=== PATIENT | male | born 1935 | race Caucasian/White ===

== ENCOUNTER 2023-05-21 23:52 | Inpatient (IN) | payer MEDICARE, OTHER ==
[~2023-05-21] VITALS: Ht 182.9 cm; Wt 90.7 kg
[2023-05-22] MEDS ORDERED: ERGO500040 PO (00:07)
[2023-05-22] MEDS ORDERED: MIRA25TA PO (00:07)
[2023-05-22] MEDS ORDERED: TRAZ-182 PO ×2 (00:07→14:09)
[2023-05-22] MEDS ORDERED: TAMS-3 PO (00:07)
[2023-05-22] MEDS ORDERED: FURO40TA5 PO (00:07)
[2023-05-22] MEDS ORDERED: ATOR40TA PO (00:07)
[2023-05-22] MEDS ORDERED: ESCI-9 PO (00:07)
[2023-05-22] MEDS ORDERED: CALC-1276 PO (00:07)
[2023-05-22] MEDS ORDERED: ASPI81TA31 PO (00:07)
[2023-05-22] MEDS ORDERED: LEVO25TA9 PO (00:07)
[2023-05-22] MEDS ORDERED: POTA-88 PO (00:07)
--- NOTE | 2023-05-22 00:10 | NUR ---
Pt is noted responsive but very Altered as he is brought in by EMS from a SNF confused, Lashing out at staff and Agressive with a history off UTI . Pt speaks only Bhargav. Pt care continue as awaits MD ordered.
[2023-05-22] MEDS ORDERED: HALOPERIDOL LACTATE 5 MG/1 ML VIAL IM ONE ×2 (00:15→01:45)
[2023-05-22] MEDS ORDERED: LIDOCAINE 2% (GLYDO= UROJET) 10 ML JELLY MM ONE (00:15)
[2023-05-22] MEDS ORDERED: LORAZEPAM 2 MG/1 ML VIAL IM ONE ×2 (00:15→04:15)
[2023-05-22 00:29] LABS: HEMATOCRIT 37.8 % (36.7-47.1); MEAN CORPUSCULAR HEMOGLOBIN 32.2 uug (23.8-33.4); PLATELET COUNT (AUTO) 173 K/uL (152-348)
[2023-05-22] MEDS ORDERED: HALOPERIDOL LACTATE 5 MG/1 ML VIAL ONE ×2 (00:39→01:49)
[2023-05-22] MEDS ORDERED: LORAZEPAM 2 MG/1 ML VIAL ONE ×2 (00:39→04:11)
[2023-05-22 00:47] LABS: ALANINE AMINOTRANSFERASE 24 U/L (16-63); ALKALINE PHOSPHATASE 58 U/L (50-136); ASPARTATE AMINOTRANSFERASE 13 U/L (15-37); BILIRUBIN,DIRECT 0.2 mg/dL (0.0-0.2); BILIRUBIN,TOTAL 0.5 mg/dL (0.2-1.0); CARBON DIOXIDE 29 mmol/L (21-32); CHLORIDE 106 mmol/L (98-107); CREATININE 1.3 mg/dL (0.6-1.3); TOTAL PROTEIN, SERUM 6.6 g/dL (6.4-8.2); UREA NITROGEN, BLOOD 26 mg/dL (7-18)
--- NOTE | 2023-05-22 00:47 | NUR ---
Pt care continue as he is becoming more aggressive with Ativan 0.5mg IM and Haldol 5mg IM given as ordered.
[2023-05-22 00:53] LABS: ACETAMINOPHEN < 2.0 ug/mL (10-30)
[2023-05-22 00:59] LABS: THYROID STIMULATING HORMONE 3.292 mIU/mL (0.358-3.740)
--- NOTE | 2023-05-22 01:36 | NUR ---
Pt care continue as urine sent to LAB.
[2023-05-22 01:52] LABS: *BILIRUBIN,URIN NEGATIVE (NEGATIVE); *CLARITY,URINE CLEAR (CLEAR); *COLOR,URINE YELLOW (YELLOW); *KETONES,URINE TRACE (NEGATIVE); *UROBILINOGEN,URINE 0.2 E.U./dl (NORMAL); LEUKOCYTE ESTERASE ,URINE NEGATIVE (NEGATIVE); NITRITE, URINE NEGATIVE (NEGATIVE); PH,URINE 5.5 (5.0-8.0); UGLUCOSE NEGATIVE (NEGATIVE)
--- NOTE | 2023-05-22 01:54 | NUR ---
Pt care continue with restraints in place as Haldol 10mg given again as Pt is increasing aggressive and confused .
[2023-05-22 01:57] LABS: *BLOOD, URINE NEGATIVE (NEGATIVE); BACTERIA,URINE NONE SEEN /HPF (NONE SEEN); RBC,URINE 0-3 /HPF (0-3); SQUAMOUS EPITHELIAL CELL,UR NONE SEEN /HPF (NONE SEEN); WBC,URINE 0-3 /HPF (0-3)
--- NOTE | 2023-05-22 03:01 | NUR ---
Pt care continue as he is off to CT.
--- NOTE | 2023-05-22 03:22 | NUR ---
Pt care continue as he is back from CT.
--- NOTE | 2023-05-22 04:17 | NUR ---
Ativen 1mg IM given as ordered as Pt remain on restraint. Pt care continue as he is trying to pull off medical lines.
--- NOTE | 2023-05-22 06:14 | NUR ---
Pt care continue as he remain on Hard Restraints as he is been monitor closely.
--- NOTE | 2023-05-22 07:22 | NUR ---
Pt care continue as report is given to the AM receiving nurse.
--- NOTE | 2023-05-22 07:27 | NUR ---
Pt is medically cleared by Dr ayala. Awaiting to call PET at [phone].
--- NOTE | 2023-05-22 08:00 | NUR ---
Pt is taken off restraines, calm and cooperative at this time. Safety measures in place, continue close monitoring.
--- NOTE | 2023-05-22 08:30 | NUR ---
Skin care given , BM x1, reposition and all needs met. Awaiting PET eval.
--- NOTE | 2023-05-22 10:28 | NUR ---
Incontinance care given. Pt still attempts to get out of bed occassionaly. Continue close monitoring.
--- NOTE | 2023-05-22 10:50 | NUR ---
Pt was placed on 5150 hold for GD, by NAHOMY Sanchez.
--- NOTE | 2023-05-22 11:15 | NUR ---
GPS: Nursing Notes: Admitting Notes: Patient is awake and responding to his name, poor anger management, confused, disoriented, impaired judgment, medicated with Haldol and Ativan IM in the ER for severe agitation, placed on 5150 GD due to disorientation and when asked for his name, he reports "I am lazy.." Patient required restraints and IM Haldol in ER for severe agitation. On face to face assessment, patient continue to be confused, disorganized, disoriented, resistant with nursing care, A/Ox1, disrobing on his bed, belligerent toward staff, unable to be redirected, unable to formulate a viable plan for self care. Dr. Sage and Dr. Rosen informed of admission by charge nurse. Staff gave admitting package with Patient's Rights Handbook to the patient. continue to monitor for safety, continue with treatment plan.
[2023-05-22 11:20] VITALS: BP 126/68; TEMP 98; O2SAT 95
[2023-05-22] MEDS ORDERED: MAG HYDROX/AL HYDROX/SIMETH 30 ML LIQUID UDC PO PRN (11:30)
[2023-05-22] MEDS ORDERED: MAGNESIUM HYDROXIDE 30 ML LIQUID UDC PO PRN (11:30)
--- NOTE | 2023-05-22 11:33 | NUR ---
Transfer pt to bed 140B in MHU.
[2023-05-22] MEDS ORDERED: ESCI10TA PO (14:09)
[2023-05-22 16:00] VITALS: BP 137/71; TEMP 98.3; O2SAT 96
--- NOTE | 2023-05-22 20:50 | NUR ---
Patient was noted vomiting x1. emesis looked black/brown in color and semiliquid. patient's V/S are WNL. Labs are stable. H&H are WNL, patient is in no distress. Dr Burden was notified of patient's condition and new order obtained to administer Zofran 4mg PO PRN for nausea or vomiting. Will continue to monitor closely.
[2023-05-22 21:01] VITALS: BP 138/67; TEMP 98; O2SAT 96
[2023-05-22] MEDS: ATORVASTATIN 40 MG TABLET PO SCH (21:13)
[2023-05-22] MEDS: TAMSULOSIN HCL 0.4 MG CAP.SR.24H PO SCH (21:13)
[2023-05-22] MEDS: TEMAZEPAM 7.5 MG CAPSULE PO PRN (21:22)
[2023-05-22] MEDS: LORAZEPAM 1 MG TABLET PO PRN (22:39)
--- NOTE | 2023-05-22 23:25 | NUR ---
GPS: Pt.is anxious and restless in bed and keeps attempting to get out of bed. Confused,disoriented. Poor insight to present situation. Meds.for insomnia given earlier and ineffective so far.l Re-directed frequently. No facial grimacing of pain observed. No further vomitting episodes noted. Will continue to monitor.
[2023-05-23] MEDS: PANTOPRAZOLE SODIUM 40 MG TABLET.DR PO SCH (06:05)
[2023-05-23] MEDS: LEVOTHYROXINE SODIUM 25 MCG TABLET PO SCH (06:05)
--- NOTE | 2023-05-23 06:34 | NUR ---
GPS: Pt.remains asleep at this time in bed. No further vomitting episodes noted. Re-directed prn. Bed alarm on for safety. No increased agitation noted.
[2023-05-23 07:40] VITALS: BP 159/80; TEMP 98.2; O2SAT 94
[2023-05-23 08:15] LABS: BILIRUBIN,TOTAL 1.2 mg/dL (0.2-1.0); CREATININE 1.2 mg/dL (0.6-1.3); POTASSIUM 4.4 mmol/L (3.5-5.1); TOTAL PROTEIN, SERUM 6.7 g/dL (6.4-8.2)
[2023-05-23] MEDS: LORAZEPAM 1 MG TABLET PO PRN ×2 (08:21→16:18)
[2023-05-23] MEDS: ONDANSETRON ODT 4 MG TAB.RAPDIS SL PRN (08:22)
[2023-05-23] MEDS: POTASSIUM CHLORIDE 20 MEQ TAB.PRT.SR PO SCH (08:22)
[2023-05-23] MEDS: FUROSEMIDE 40 MG TABLET PO SCH (08:22)
[2023-05-23] MEDS: CALCIUM CARB/VITAMIN D 500MG-200UNITS TABLET PO SCH ×2 (08:22→16:17)
[2023-05-23] MEDS: ASPIRIN 81 MG TAB.CHEW PO SCH (08:23)
[2023-05-23] MEDS ORDERED: Medication Not On Formulary EA (Potassium Chloride 1 TAB) PO SCH (09:00)
[2023-05-23] MEDS ORDERED: ESCITALOPRAM OXALATE 10 MG TABLET PO SCH (10:00)
[2023-05-23] MEDS: ESCITALOPRAM OXALATE 10 MG TABLET PO SCH (12:07)
--- NOTE | 2023-05-23 13:39 | NUR ---
GPS: Nursing Notes: Thought Disorder: Patient is awake and responding to his name, no interactions with peers, compliant with his medications, low energy level, confused, disoriented, impaired judgment, needs assistance with ambulation, ambulatory with FWW and physical therapist, up in the lakshmi chair, resistant with nursing care at times, poor anger management at times, disorganized, unable to formulate a viable plan for self care, on fall precautions, continue to monitor for safety, continue with treatment plan.
[2023-05-23 15:46] VITALS: BP 120/61; TEMP 97.8; O2SAT 96
[2023-05-23 19:57] VITALS: BP 154/64; TEMP 98.1; O2SAT 97
[2023-05-23] MEDS: TAMSULOSIN HCL 0.4 MG CAP.SR.24H PO SCH (20:16)
[2023-05-23] MEDS: ATORVASTATIN 40 MG TABLET PO SCH (20:16)
[2023-05-24] MEDS: TEMAZEPAM 7.5 MG CAPSULE PO PRN ×2 (00:12→21:47)
[2023-05-24] MEDS: LORAZEPAM 1 MG TABLET PO PRN ×2 (01:16→19:33)
[2023-05-24] MEDS: PANTOPRAZOLE SODIUM 40 MG TABLET.DR PO SCH (06:35)
[2023-05-24] MEDS: LEVOTHYROXINE SODIUM 25 MCG TABLET PO SCH (06:35)
[2023-05-24 08:09] VITALS: BP 126/64; TEMP 98.4; O2SAT 98
[2023-05-24] MEDS: POTASSIUM CHLORIDE 20 MEQ TAB.PRT.SR PO SCH (08:53)
[2023-05-24] MEDS: FUROSEMIDE 40 MG TABLET PO SCH (08:53)
[2023-05-24] MEDS: CALCIUM CARB/VITAMIN D 500MG-200UNITS TABLET PO SCH ×2 (08:53→17:35)
[2023-05-24] MEDS: ASPIRIN 81 MG TAB.CHEW PO SCH (08:55)
[2023-05-24] MEDS: ESCITALOPRAM OXALATE 10 MG TABLET PO SCH (08:55)
--- NOTE | 2023-05-24 11:51 | NUR ---
MARJORIE Initial Discharge Note: Pt currently resides at [facility] located at [address] [place] [id number] . It is unsure at this time if pt will be returning to [facility]. MARJORIE will work with pt, his son/DPMOSHE, Lamar, and to ensure a safe and proper discharge plan.
[2023-05-24 15:50] VITALS: BP 121/74; TEMP 98.2; O2SAT 98
--- NOTE | 2023-05-24 16:42 | NUR ---
Pt is confused, disoriented, disorganized, impaired judgment. Pt can be resistant with nursing care at times. Pt is unable to care for him self and needs maximal assistance with ADLs. Pt is compliant with medications. Pt is unable to formulate a viable plan for self care. Reassurance and emotional support provided. Safety measures in place. Continue to monitor for safety, continue with treatment plan.
[2023-05-24] MEDS: ATORVASTATIN 40 MG TABLET PO SCH (20:07)
[2023-05-24] MEDS: TAMSULOSIN HCL 0.4 MG CAP.SR.24H PO SCH (20:07)
[2023-05-24 20:10] VITALS: BP 132/63; TEMP 98.1; O2SAT 96
[2023-05-25] MEDS: LORAZEPAM 1 MG TABLET PO PRN ×3 (02:51→20:30)
[2023-05-25] MEDS: PANTOPRAZOLE SODIUM 40 MG TABLET.DR PO SCH (06:01)
[2023-05-25] MEDS: LEVOTHYROXINE SODIUM 25 MCG TABLET PO SCH (06:01)
--- NOTE | 2023-05-25 06:32 | NUR ---
GPS: Remains confused,disoriented. Has poor insight and judgment to present situation. Med.compliant. Allows care from staff. No increased agitation noted. Fall precautions observed. Re-directed prn.
[2023-05-25 08:02] VITALS: BP 138/67; TEMP 98; O2SAT 98
[2023-05-25] MEDS: CALCIUM CARB/VITAMIN D 500MG-200UNITS TABLET PO SCH ×2 (08:56→17:12)
[2023-05-25] MEDS: FUROSEMIDE 40 MG TABLET PO SCH (08:56)
[2023-05-25] MEDS: ASPIRIN 81 MG TAB.CHEW PO SCH (08:56)
[2023-05-25] MEDS: ESCITALOPRAM OXALATE 10 MG TABLET PO SCH (08:56)
[2023-05-25] MEDS: POTASSIUM CHLORIDE 20 MEQ TAB.PRT.SR PO SCH (08:56)
--- NOTE | 2023-05-25 14:24 | NUR ---
Nursing- Stayed in the activity room this am , remains in his lakshmi-chair . Routine am meds, was administered crushed with pudding . Gets anxious , confused ,able to feed self ind .after set up .
[2023-05-25 15:16] VITALS: BP 136/63; TEMP 98; O2SAT 98
--- NOTE | 2023-05-25 15:26 | NUR ---
Patient had court hearing today, circuit court judge Bernie Manrique gave 14 Day hold probable cause to GD.
--- NOTE | 2023-05-25 16:23 | NUR ---
Gps/Nursing -Noted bladder incontinence toileted , good hygiene provided . noted scanty bleeding when being cleansed during his toileting , good skin care provided . Resistive during his care .
[2023-05-25 19:37] VITALS: BP 139/85; TEMP 98; O2SAT 98
[2023-05-25] MEDS: TAMSULOSIN HCL 0.4 MG CAP.SR.24H PO SCH (20:30)
[2023-05-25] MEDS: ATORVASTATIN 40 MG TABLET PO SCH (20:30)
[2023-05-26] MEDS: PANTOPRAZOLE SODIUM 40 MG TABLET.DR PO SCH (07:00)
[2023-05-26] MEDS: LEVOTHYROXINE SODIUM 25 MCG TABLET PO SCH (07:00)
[2023-05-26 08:04] VITALS: BP 123/66; TEMP 97.6; O2SAT 98
[2023-05-26] MEDS: FUROSEMIDE 40 MG TABLET PO SCH (08:29)
[2023-05-26] MEDS: CALCIUM CARB/VITAMIN D 500MG-200UNITS TABLET PO SCH ×2 (08:29→16:57)
[2023-05-26] MEDS: POTASSIUM CHLORIDE 20 MEQ TAB.PRT.SR PO SCH (08:30)
[2023-05-26] MEDS: ESCITALOPRAM OXALATE 10 MG TABLET PO SCH (08:30)
[2023-05-26] MEDS: ASPIRIN 81 MG TAB.CHEW PO SCH (08:30)
--- NOTE | 2023-05-26 14:43 | NUR ---
Gps/Nursing- While lead technical writer was talking to another staff , patient grabbed ID tag of the staff , and will not give it back. Security Guards was called , came to assist staff retrieved ID tag, patient was taken to the bathroom, diaper was changed 4 staff assisting , was able to retrieved iID tag back, patient hide tad inside his pajama .
[2023-05-26 16:25] VITALS: BP 130/65; TEMP 97.9; O2SAT 97
[2023-05-26 19:49] VITALS: BP 140/67; TEMP 98.1; O2SAT 97
[2023-05-26] MEDS: LORAZEPAM 1 MG TABLET PO PRN (19:51)
[2023-05-26] MEDS: ATORVASTATIN 40 MG TABLET PO SCH (19:51)
[2023-05-26] MEDS: TAMSULOSIN HCL 0.4 MG CAP.SR.24H PO SCH (19:51)
[2023-05-27] MEDS: TEMAZEPAM 7.5 MG CAPSULE PO PRN ×2 (02:46→23:13)
--- NOTE | 2023-05-27 02:55 | NUR ---
Although confused, disoriented, and unable to provided a plan of self care, pt is overall compliant with care. Complies with direction given by staff nurses. Although crushed, pt takes medications without any refusal. He is non ambulatory, yet transferrable x1 or x2 assist. Fall Risk. Safety measures in place. Will continue to monitor.
[2023-05-27] MEDS: PANTOPRAZOLE SODIUM 40 MG TABLET.DR PO SCH (06:36)
[2023-05-27] MEDS: LEVOTHYROXINE SODIUM 25 MCG TABLET PO SCH (06:36)
[2023-05-27 07:49] VITALS: BP 104/71; TEMP 98.1; O2SAT 97
[2023-05-27] MEDS: POTASSIUM CHLORIDE 20 MEQ TAB.PRT.SR PO SCH (08:42)
[2023-05-27] MEDS: FUROSEMIDE 40 MG TABLET PO SCH (08:42)
[2023-05-27] MEDS: ASPIRIN 81 MG TAB.CHEW PO SCH (08:42)
[2023-05-27] MEDS: CALCIUM CARB/VITAMIN D 500MG-200UNITS TABLET PO SCH ×2 (08:44→16:45)
[2023-05-27] MEDS: ESCITALOPRAM OXALATE 10 MG TABLET PO SCH (08:51)
[2023-05-27] MEDS: LORAZEPAM 1 MG TABLET PO PRN ×2 (12:25→21:23)
[2023-05-27] MEDS: ENSURE ENLIVE (VAN) 240 ML LIQUID PO SCH (13:00)
--- NOTE | 2023-05-27 15:56 | NUR ---
Received Patient is awake and responding to his name, no interactions with peers, compliant with his medications.patient is confused, disoriented, impaired judgment, needs assistance with ambulation, ambulatory with FWW and physical therapist, up in the lakshmi chair, resistant with nursing care at times, poor anger management at times, disorganized, unable to formulate a viable plan for self care, on fall precautions, continue to monitor for safety, continue with treatment plan.
[2023-05-27 16:41] VITALS: BP 139/70; TEMP 98; O2SAT 98
[2023-05-27 20:00] VITALS: BP 142/66; TEMP 98.6; O2SAT 97
[2023-05-27] MEDS: TAMSULOSIN HCL 0.4 MG CAP.SR.24H PO SCH (20:29)
[2023-05-27] MEDS: ATORVASTATIN 40 MG TABLET PO SCH (20:29)
--- NOTE | 2023-05-27 20:30 | NUR ---
Received patient in the hallway sitting in a lory chair near the nursing station for safety. He is noted A/O 1. he is calm and cooperative. his mood is bright, affect is labile. his V/S are stable. He is reassured for his safety. safety and fall precautions are in place. he was given PO fluids and snacks, will continue to monitor.
--- NOTE | 2023-05-27 21:30 | NUR ---
Patient noted hyperverbal, and restless. Ativan 1mg PO PRN was given. will continue to monitor,
[2023-05-28] MEDS: LEVOTHYROXINE SODIUM 25 MCG TABLET PO SCH (06:44)
[2023-05-28] MEDS: PANTOPRAZOLE SODIUM 40 MG TABLET.DR PO SCH (06:44)
[2023-05-28 08:37] VITALS: BP 144/57; TEMP 98; O2SAT 96
[2023-05-28] MEDS: POTASSIUM CHLORIDE 20 MEQ TAB.PRT.SR PO SCH (08:45)
[2023-05-28] MEDS: CALCIUM CARB/VITAMIN D 500MG-200UNITS TABLET PO SCH ×2 (08:45→16:50)
[2023-05-28] MEDS: FUROSEMIDE 40 MG TABLET PO SCH (08:45)
[2023-05-28] MEDS: ASPIRIN 81 MG TAB.CHEW PO SCH (08:45)
[2023-05-28] MEDS: ESCITALOPRAM OXALATE 10 MG TABLET PO SCH (08:46)
[2023-05-28] MEDS: ERGOCALCIFEROL 50,000 UNIT CAPSULE PO SCH (08:47)
[2023-05-28] MEDS: ENSURE ENLIVE (VAN) 240 ML LIQUID PO SCH (08:47)
[2023-05-28 16:29] VITALS: BP 130/59; TEMP 98.3; O2SAT 98
[2023-05-28] MEDS: ATORVASTATIN 40 MG TABLET PO SCH (20:13)
[2023-05-28] MEDS: TAMSULOSIN HCL 0.4 MG CAP.SR.24H PO SCH (20:13)
[2023-05-28 20:14] VITALS: BP 136/64; TEMP 98; O2SAT 98
[2023-05-28] MEDS: LORAZEPAM 1 MG TABLET PO PRN (21:02)
--- NOTE | 2023-05-29 04:09 | NUR ---
Received patient in the hallway sitting in a lory chair near the nursing station for safety. He is noted A/O 1. he is a poor historian. he is hyperverbal labile and unpredictable, Ativan 1mg PO prn was given for agitation. Pt is able to cooperative with his medication regiment diet and care. his V/S are stable. He is reassured for his safety. safety and fall precautions are in place. he was given PO fluids and snacks, will continue to monitor.
[2023-05-29] MEDS: PANTOPRAZOLE SODIUM 40 MG TABLET.DR PO SCH (06:43)
[2023-05-29] MEDS: LEVOTHYROXINE SODIUM 25 MCG TABLET PO SCH (06:43)
[2023-05-29 07:58] VITALS: BP 131/67; TEMP 98.2; O2SAT 99
[2023-05-29] MEDS: LORAZEPAM 1 MG TABLET PO PRN ×2 (08:00→20:27)
[2023-05-29] MEDS: FUROSEMIDE 40 MG TABLET PO SCH (08:09)
[2023-05-29] MEDS: ESCITALOPRAM OXALATE 10 MG TABLET PO SCH ×2 (08:09→12:40)
[2023-05-29] MEDS: POTASSIUM CHLORIDE 20 MEQ TAB.PRT.SR PO SCH (08:09)
[2023-05-29] MEDS: ASPIRIN 81 MG TAB.CHEW PO SCH (08:09)
[2023-05-29] MEDS: CALCIUM CARB/VITAMIN D 500MG-200UNITS TABLET PO SCH ×2 (08:09→16:59)
[2023-05-29] MEDS: ENSURE ENLIVE (VAN) 240 ML LIQUID PO SCH (08:09)
[2023-05-29 16:11] VITALS: BP 146/95; TEMP 98.4; O2SAT 97
[2023-05-29] MEDS: TAMSULOSIN HCL 0.4 MG CAP.SR.24H PO SCH (20:27)
[2023-05-29] MEDS: ATORVASTATIN 40 MG TABLET PO SCH (20:28)
[2023-05-29 20:58] VITALS: BP 152/67; TEMP 98.2; O2SAT 98
[2023-05-29] MEDS: TEMAZEPAM 7.5 MG CAPSULE PO PRN (23:43)
--- NOTE | 2023-05-29 23:44 | NUR ---
Gave Temazepam po prn for restlessness. Safe environment provided. Will continue to monitor. Addendum: 05/29/23 at 2347 by ROGER OZUNA LVN Gave Temazepam d/t Ativan being ineffective and patient was having trouble falling asleep.
[2023-05-30] MEDS: PANTOPRAZOLE SODIUM 40 MG TABLET.DR PO SCH (07:14)
[2023-05-30] MEDS: LEVOTHYROXINE SODIUM 25 MCG TABLET PO SCH (07:14)
[2023-05-30 07:48] VITALS: BP 141/58; TEMP 97.5; O2SAT 96
[2023-05-30] MEDS: CALCIUM CARB/VITAMIN D 500MG-200UNITS TABLET PO SCH ×2 (08:54→16:26)
[2023-05-30] MEDS: ASPIRIN 81 MG TAB.CHEW PO SCH (08:54)
[2023-05-30] MEDS: POTASSIUM CHLORIDE 20 MEQ TAB.PRT.SR PO SCH (08:54)
[2023-05-30] MEDS: FUROSEMIDE 40 MG TABLET PO SCH (08:54)
[2023-05-30] MEDS: ENSURE ENLIVE (VAN) 240 ML LIQUID PO SCH (08:54)
[2023-05-30] MEDS: ESCITALOPRAM OXALATE 10 MG TABLET PO SCH ×2 (08:54→12:20)
--- NOTE | 2023-05-30 11:41 | NUR ---
GPS: Nursing Notes: Thought Disorder: Patient is awake and responding to his name, disoriented, confused, disorganized, impaired judgment, poor insight, regressing to his lone [place] language - Farsi, unable to formulate a viable plan for self care, redirected and reoriented during shift, episodes of irritability, but redirected, sundown behavior at times, continue to monitor for safety, continue with treatment plan.
[2023-05-30] MEDS: LORAZEPAM 1 MG TABLET PO PRN ×3 (12:45→20:53)
[2023-05-30 16:07] VITALS: BP 131/61; TEMP 97.7; O2SAT 98
[2023-05-30 20:06] VITALS: BP 151/63; TEMP 97.9; O2SAT 100
[2023-05-30] MEDS: ATORVASTATIN 40 MG TABLET PO SCH (20:47)
[2023-05-30] MEDS: TAMSULOSIN HCL 0.4 MG CAP.SR.24H PO SCH (20:47)
[2023-05-30] MEDS: TEMAZEPAM 7.5 MG CAPSULE PO PRN (22:16)
[2023-05-31] MEDS: LEVOTHYROXINE SODIUM 25 MCG TABLET PO SCH (06:28)
[2023-05-31] MEDS: PANTOPRAZOLE SODIUM 40 MG TABLET.DR PO SCH (06:28)
[2023-05-31 07:54] VITALS: BP 148/59; TEMP 98.2; O2SAT 98
[2023-05-31 08:58] LABS: CARBON DIOXIDE 29 mmol/L (21-32); CHLORIDE 104 mmol/L (98-107); CREATININE 1.1 mg/dL (0.6-1.3); POTASSIUM 4.7 mmol/L (3.5-5.1); UREA NITROGEN, BLOOD 25 mg/dL (7-18)
[2023-05-31] MEDS: ESCITALOPRAM OXALATE 10 MG TABLET PO SCH ×2 (09:20→12:49)
[2023-05-31] MEDS: ASPIRIN 81 MG TAB.CHEW PO SCH (09:20)
[2023-05-31] MEDS: POTASSIUM CHLORIDE 20 MEQ TAB.PRT.SR PO SCH (09:20)
[2023-05-31] MEDS: FUROSEMIDE 40 MG TABLET PO SCH (09:20)
[2023-05-31] MEDS: CALCIUM CARB/VITAMIN D 500MG-200UNITS TABLET PO SCH ×2 (09:20→17:11)
[2023-05-31] MEDS: ENSURE ENLIVE (VAN) 240 ML LIQUID PO SCH (09:21)
[2023-05-31 15:09] VITALS: BP 115/82; TEMP 98; O2SAT 98
--- NOTE | 2023-05-31 17:49 | NUR ---
Patient is confused, forgetful, disorganized, disoriented, compliant with medications, cooperative with nursing care. Patient is A/O X 1 to person. Reassurance given. Fall and safety precautions implemented.
[2023-05-31 20:09] VITALS: BP 145/56; TEMP 98.1; O2SAT 98
[2023-05-31] MEDS: ATORVASTATIN 40 MG TABLET PO SCH (20:54)
[2023-05-31] MEDS: TAMSULOSIN HCL 0.4 MG CAP.SR.24H PO SCH (20:54)
[2023-05-31] MEDS: TEMAZEPAM 7.5 MG CAPSULE PO PRN (20:55)
[2023-06-01] MEDS: PANTOPRAZOLE SODIUM 40 MG TABLET.DR PO SCH (06:30)
[2023-06-01] MEDS: LEVOTHYROXINE SODIUM 25 MCG TABLET PO SCH (06:31)
[2023-06-01 08:00] VITALS: BP 152/84; TEMP 98; O2SAT 99
[2023-06-01] MEDS: ESCITALOPRAM OXALATE 10 MG TABLET PO SCH ×2 (09:50→13:03)
[2023-06-01] MEDS: CALCIUM CARB/VITAMIN D 500MG-200UNITS TABLET PO SCH ×2 (09:50→16:57)
[2023-06-01] MEDS: POTASSIUM CHLORIDE 20 MEQ TAB.PRT.SR PO SCH (09:50)
[2023-06-01] MEDS: CYANOCOBALAMIN 1,000 MCG TABLET PO SCH (09:50)
[2023-06-01] MEDS: ASPIRIN 81 MG TAB.CHEW PO SCH (09:51)
[2023-06-01] MEDS: ENSURE ENLIVE (VAN) 240 ML LIQUID PO SCH (09:51)
[2023-06-01] MEDS: FUROSEMIDE 40 MG TABLET PO SCH (09:51)
--- NOTE | 2023-06-01 15:05 | NUR ---
Patient is disoriented, compliant with medications, cooperative with nursing care, withdrawn, anxious and agitated at times of confusion. Patient is A/O X 1 -2 to person. Reality orientation provided. Fall and safety precautions implemented.
[2023-06-01 17:40] VITALS: BP 118/61; TEMP 97.8; O2SAT 98
[2023-06-01 20:02] VITALS: BP 151/60; TEMP 98.1; O2SAT 97
[2023-06-01] MEDS: ATORVASTATIN 40 MG TABLET PO SCH (21:20)
[2023-06-01] MEDS: TEMAZEPAM 7.5 MG CAPSULE PO PRN (21:21)
[2023-06-01] MEDS: TAMSULOSIN HCL 0.4 MG CAP.SR.24H PO SCH (21:21)
[2023-06-02] MEDS: LEVOTHYROXINE SODIUM 25 MCG TABLET PO SCH (07:12)
[2023-06-02] MEDS: PANTOPRAZOLE SODIUM 40 MG TABLET.DR PO SCH (07:12)
--- NOTE | 2023-06-02 07:18 | NUR ---
GPS nursing notes: Patient is up in the Kathie-chair, with no S/S of distress notes, confused, rambling to self, fall and safety precautions implemented. will continue to monitor.
[2023-06-02 07:43] VITALS: BP 133/54; TEMP 98; O2SAT 96
[2023-06-02] MEDS ORDERED: TEMAZEPAM 7.5 MG CAPSULE PO PRN (08:30)
[2023-06-02] MEDS: CYANOCOBALAMIN 1,000 MCG TABLET PO SCH (08:42)
[2023-06-02] MEDS: ASPIRIN 81 MG TAB.CHEW PO SCH (08:42)
[2023-06-02] MEDS: POTASSIUM CHLORIDE 20 MEQ TAB.PRT.SR PO SCH (08:42)
[2023-06-02] MEDS: FUROSEMIDE 40 MG TABLET PO SCH (08:42)
[2023-06-02] MEDS: ESCITALOPRAM OXALATE 10 MG TABLET PO SCH ×2 (08:42→12:26)
[2023-06-02] MEDS: ENSURE ENLIVE (VAN) 240 ML LIQUID PO SCH (08:44)
[2023-06-02] MEDS: CALCIUM CARB/VITAMIN D 500MG-200UNITS TABLET PO SCH ×2 (08:44→16:33)
[2023-06-02 15:18] VITALS: BP 132/47; TEMP 98; O2SAT 98
[2023-06-02] MEDS: LORAZEPAM 1 MG TABLET PO PRN (19:21)
[2023-06-02 20:00] VITALS: BP 137/60; TEMP 98.8; O2SAT 98
[2023-06-02] MEDS: ATORVASTATIN 40 MG TABLET PO SCH (20:27)
[2023-06-02] MEDS: TAMSULOSIN HCL 0.4 MG CAP.SR.24H PO SCH (20:27)
[2023-06-02] MEDS: MUPIROCIN 2% OINT 22 GM TUBE TP SCH (20:27)
[2023-06-02] MEDS ORDERED: OLANZAPINE 10 MG VIAL IM STA (21:36)
--- NOTE | 2023-06-02 22:01 | NUR ---
GPS: Pt.has been anxious,restless,confused,disoriented,yelling intermittently since start of shift. Constant re-direction provided. Medicated by outgoing nurse earlier for anxiety/agitation with no effect. Pt.when approached by staff to do incontinence care started to kick and attempt to strike out at staff. Unable to be re-directed. made aware with orders to give Zyprexa 5mg IM. Order carried-out. Zyprexa 5mg given IM on left deltoid muscle and mark.well. Safe environment provided. Safety checks continues as well as behavior monitoring.
[2023-06-02 23:31] VITALS: BP 148/66; TEMP 97.7; O2SAT 96
[2023-06-02] MEDS: TEMAZEPAM 15 MG CAPSULE PO PRN (23:43)
--- NOTE | 2023-06-03 03:53 | NUR ---
GPS: Asleep at this time with bed alarm on for safety. Breathing easy and unlabored. Needs attended. Will continue to monitor.
[2023-06-03] MEDS: LORAZEPAM 1 MG TABLET PO PRN ×2 (04:19→20:30)
[2023-06-03] MEDS: LEVOTHYROXINE SODIUM 25 MCG TABLET PO SCH (06:11)
[2023-06-03] MEDS: PANTOPRAZOLE SODIUM 40 MG TABLET.DR PO SCH (06:11)
[2023-06-03 07:51] VITALS: BP 143/58; TEMP 98.2; O2SAT 98
[2023-06-03] MEDS: ASPIRIN 81 MG TAB.CHEW PO SCH (08:15)
[2023-06-03] MEDS: CALCIUM CARB/VITAMIN D 500MG-200UNITS TABLET PO SCH ×2 (08:16→17:12)
[2023-06-03] MEDS: CYANOCOBALAMIN 1,000 MCG TABLET PO SCH (08:16)
[2023-06-03] MEDS: FUROSEMIDE 40 MG TABLET PO SCH (08:16)
[2023-06-03] MEDS: ESCITALOPRAM OXALATE 10 MG TABLET PO SCH ×2 (08:16→12:57)
[2023-06-03] MEDS: POTASSIUM CHLORIDE 20 MEQ TAB.PRT.SR PO SCH (08:16)
[2023-06-03] MEDS: MUPIROCIN 2% OINT 22 GM TUBE TP SCH ×2 (08:50→21:00)
[2023-06-03] MEDS: ENSURE ENLIVE (VAN) 240 ML LIQUID PO SCH (08:50)
[2023-06-03] MEDS: OLANZAPINE 2.5 MG TABLET PO SCH ×2 (10:50→20:42)
--- NOTE | 2023-06-03 11:39 | NUR ---
GPS: Nursing Notes: Thought Disorder: Patient is awake and responding to his name, disoriented, poor insight, impaired judgment, disorganized, resistant with nursing care, episodes of sundown behavior, unable to formulate a viable plan for self care, needs assistance with ADL's, redirected and reoriented during shift, refusing to participate in therapeutic groups, continue to monitor for safety, continue with treatment plan.
[2023-06-03 15:40] VITALS: BP 149/62; TEMP 98.2; O2SAT 99
[2023-06-03 20:30] VITALS: BP 151/85; TEMP 98; O2SAT 94
[2023-06-03] MEDS: ATORVASTATIN 40 MG TABLET PO SCH (20:30)
[2023-06-03] MEDS: ONDANSETRON ODT 4 MG TAB.RAPDIS SL PRN (20:42)
[2023-06-03] MEDS: TAMSULOSIN HCL 0.4 MG CAP.SR.24H PO SCH (20:42)
[2023-06-03] MEDS: ACETAMINOPHEN 325 MG TABLET PO PRN (20:43)
[2023-06-03] MEDS ORDERED: FUROSEMIDE 40 MG TABLET PO ONE (21:30)
--- NOTE | 2023-06-04 00:24 | NUR ---
I introduced myself to this patient. He is awake, alert, oriented only to name. He follows simple commands and speech is clear, but speaks in FARSI language, with only a little Ecuadorean. He is resistant to his care. Poor insight and impaired judgement. Disorganized and confused. He sat in the cardiac chair for several hours and was assisted to bed at midnight. His appetite is good. His respirations are easy, regular, and unlabored, as I observe his chest wall rise and fall with every breath. He was able to swallow his medications with the help of pudding. He denies distress or pain.
[2023-06-04] MEDS: LEVOTHYROXINE SODIUM 25 MCG TABLET PO SCH (05:59)
[2023-06-04] MEDS: PANTOPRAZOLE SODIUM 40 MG TABLET.DR PO SCH (06:00)
[2023-06-04 08:05] VITALS: BP 143/100; TEMP 98.3; O2SAT 97
[2023-06-04 08:07] LABS: HEMATOCRIT 35.8 % (36.7-47.1); MEAN CORPUSCULAR HEMOGLOBIN 31.8 uug (23.8-33.4); MEAN CORPUSCULAR VOLUME 94.4 fL (73.0-96.2); PLATELET COUNT (AUTO) 188 K/uL (152-348)
[2023-06-04] MEDS: ESCITALOPRAM OXALATE 10 MG TABLET PO SCH ×2 (08:32→12:22)
[2023-06-04] MEDS: OLANZAPINE 2.5 MG TABLET PO SCH ×2 (08:32→20:19)
[2023-06-04] MEDS: CYANOCOBALAMIN 1,000 MCG TABLET PO SCH (08:32)
[2023-06-04] MEDS: POTASSIUM CHLORIDE 20 MEQ TAB.PRT.SR PO SCH (08:32)
[2023-06-04] MEDS: ASPIRIN 81 MG TAB.CHEW PO SCH (08:32)
[2023-06-04] MEDS: FUROSEMIDE 40 MG TABLET PO SCH ×2 (08:32→16:43)
[2023-06-04] MEDS: ERGOCALCIFEROL 50,000 UNIT CAPSULE PO SCH (08:32)
[2023-06-04] MEDS: CALCIUM CARB/VITAMIN D 500MG-200UNITS TABLET PO SCH ×2 (08:32→16:43)
[2023-06-04] MEDS: MUPIROCIN 2% OINT 22 GM TUBE TP SCH ×2 (08:33→20:23)
[2023-06-04] MEDS: ENSURE ENLIVE (VAN) 240 ML LIQUID PO SCH (08:33)
[2023-06-04 08:41] LABS: CREATININE 1.2 mg/dL (0.6-1.3); MAGNESIUM 2.4 mg/dL (1.8-2.4); POTASSIUM 4.2 mmol/L (3.5-5.1)
--- NOTE | 2023-06-04 11:32 | NUR ---
GPS: Nursing Notes: Thought Disorder: Patient is awake and responding to his name, disoriented, confused, disorganized, impaired judgment, poor insight, resistant with nursing care at times, episodes of shouting and banging on the table, redirected and reoriented during shift, unable to formulate a viable plan for self care, keeping his legs elevated per loss prevention guard order, continue to monitor for safety, continue with treatment plan.
[2023-06-04] MEDS: LORAZEPAM 1 MG TABLET PO PRN ×2 (12:22→19:31)
[2023-06-04 16:40] VITALS: BP 160/63; TEMP 98.1; O2SAT 98
--- NOTE | 2023-06-04 19:33 | NUR ---
Gave Ativan po prn d/t continued restlessness and yelling outbursts. Hard to redirect, yet compliant with med pass. Pt in gerichair next to nursing station for closer monitoring.
[2023-06-04 19:41] VITALS: BP 131/59; TEMP 98.4; O2SAT 97
[2023-06-04] MEDS: ATORVASTATIN 40 MG TABLET PO SCH (20:19)
[2023-06-04] MEDS: TAMSULOSIN HCL 0.4 MG CAP.SR.24H PO SCH (20:19)
[2023-06-05] MEDS: LEVOTHYROXINE SODIUM 25 MCG TABLET PO SCH (06:32)
[2023-06-05] MEDS: PANTOPRAZOLE SODIUM 40 MG TABLET.DR PO SCH (06:32)
--- NOTE | 2023-06-05 06:32 | NUR ---
Patient was asleep and refused to take his 0700 hour scheduled medications (Protonix and Synthroid). Safe environment ongoing.
[2023-06-05 07:50] VITALS: BP 150/64; TEMP 98; O2SAT 97
--- NOTE | 2023-06-05 08:55 | NUR ---
SW Discharge update: MARJORIE spoke with Lamar [phone] who stated he will arrange transportation for the pt's return to [facility] [phone] located at [address] [place] [address] upon discharge. Per Lamar, either himself or nursing will help arrange transportation.
--- NOTE | 2023-06-05 08:58 | NUR ---
Firearms Report: Director Of Counseling completed and submitted a DOJ firearms report for 5150 grave disability certifications. A copy of report has been placed in patient chart.
[2023-06-05] MEDS: OLANZAPINE 2.5 MG TABLET PO SCH (09:23)
[2023-06-05] MEDS: ASPIRIN 81 MG TAB.CHEW PO SCH (09:23)
[2023-06-05] MEDS: FUROSEMIDE 40 MG TABLET PO SCH ×2 (09:23→16:40)
[2023-06-05] MEDS: POTASSIUM CHLORIDE 20 MEQ TAB.PRT.SR PO SCH (09:23)
[2023-06-05] MEDS: CYANOCOBALAMIN 1,000 MCG TABLET PO SCH (09:23)
[2023-06-05] MEDS: ESCITALOPRAM OXALATE 10 MG TABLET PO SCH ×3 (09:24→16:40)
[2023-06-05] MEDS: CALCIUM CARB/VITAMIN D 500MG-200UNITS TABLET PO SCH ×2 (09:24→16:40)
[2023-06-05] MEDS: ENSURE ENLIVE (VAN) 240 ML LIQUID PO SCH (09:24)
[2023-06-05] MEDS: MUPIROCIN 2% OINT 22 GM TUBE TP SCH ×2 (09:25→21:40)
--- NOTE | 2023-06-05 13:57 | NUR ---
MARJORIE Discharge Update: MARJORIE contacted pt's son/DPOA, Lamar [phone] and left a voicemail informing him that pt is stable for discharge this week back to [facility]. MARJORIE is awaiting a call back. Lamar will arrange transportation for the pt's return to [facility] assisted living [phone] located at [address] [place] [address]. MARJORIE spoke with Sharon in admissions who stated pt will need to be evaluated when he is stable. MARJORIE stated he is stable now for discharge this week. Sharon stated she will inform the refining supervisor, Doretha for evaluation today or tomorrow. MARJORIE will follow-up.
--- NOTE | 2023-06-05 14:17 | NUR ---
MARJORIE Discharge Update: MARJORIE faxed patient's updated referral packet including: History and Physical, Consultation, Progress Notes, Medication List and Labs to the following facilities for review and possible long-term placement: [facility] admissions ATTN to Anjana [phone] F:[phone].
--- NOTE | 2023-06-05 14:32 | NUR ---
GPS: Nursing Notes: Thought Disorder: Patient is awake and responding to his name, disoriented, disorganized, impaired judgment, poor insight, poor impulse control at times, redirected and reoriented during shift, needs assistance with ADL's, regressing to his sioux language - Farsi, unable to formulate a viable plan for self care, continue to monitor for safety, continue with treatment plan.
[2023-06-05 16:11] VITALS: BP 98/50; TEMP 98.4; O2SAT 98
[2023-06-05 19:55] VITALS: BP 136/62; TEMP 98.3; O2SAT 96
[2023-06-05] MEDS: TEMAZEPAM 15 MG CAPSULE PO PRN (20:38)
[2023-06-05] MEDS: TAMSULOSIN HCL 0.4 MG CAP.SR.24H PO SCH (20:50)
[2023-06-05] MEDS: ATORVASTATIN 40 MG TABLET PO SCH (20:50)
[2023-06-05] MEDS ORDERED: OLANZAPINE 2.5 MG TABLET PO SCH (21:00)
[2023-06-06] MEDS: LEVOTHYROXINE SODIUM 25 MCG TABLET PO SCH (07:22)
[2023-06-06] MEDS: PANTOPRAZOLE SODIUM 40 MG TABLET.DR PO SCH (07:22)
[2023-06-06 07:30] VITALS: BP 125/59; TEMP 98; O2SAT 98
[2023-06-06 08:21] LABS: ALANINE AMINOTRANSFERASE 32 U/L (16-63); ALKALINE PHOSPHATASE 60 U/L (50-136); ASPARTATE AMINOTRANSFERASE 21 U/L (15-37); BILIRUBIN,TOTAL 0.7 mg/dL (0.2-1.0); CARBON DIOXIDE 33 mmol/L (21-32); CHLORIDE 107 mmol/L (98-107); CREATININE 1.2 mg/dL (0.6-1.3); POTASSIUM 4.2 mmol/L (3.5-5.1); TOTAL PROTEIN, SERUM 6.4 g/dL (6.4-8.2); UREA NITROGEN, BLOOD 28 mg/dL (7-18)
[2023-06-06] MEDS: ASPIRIN 81 MG TAB.CHEW PO SCH (08:25)
[2023-06-06] MEDS: POTASSIUM CHLORIDE 20 MEQ TAB.PRT.SR PO SCH (08:25)
[2023-06-06] MEDS: FUROSEMIDE 40 MG TABLET PO SCH (08:25)
[2023-06-06] MEDS: CYANOCOBALAMIN 1,000 MCG TABLET PO SCH (08:25)
[2023-06-06] MEDS: ESCITALOPRAM OXALATE 10 MG TABLET PO SCH ×2 (08:25→12:23)
[2023-06-06] MEDS: CALCIUM CARB/VITAMIN D 500MG-200UNITS TABLET PO SCH ×2 (08:25→16:11)
[2023-06-06] MEDS: MUPIROCIN 2% OINT 22 GM TUBE TP SCH ×2 (08:26→21:00)
[2023-06-06] MEDS: ENSURE ENLIVE (VAN) 240 ML LIQUID PO SCH (08:26)
--- NOTE | 2023-06-06 09:18 | NUR ---
SW Discharge Update: MARJORIE contacted pt's son/DPOALamar [phone] and left a voicemail informing him that pt is stable for discharge this week back to [facility]. MARJORIE also stated that this SW has not received confirmation from [facility] P: [phone] F: [phone] for pt's admission back upon discharge nor an in person evaluation that was requested by admissions. MARJORIE asked for a call back to discuss pt's discharge options.
--- NOTE | 2023-06-06 11:17 | NUR ---
SW Discharge Update: Pt's son/DPOA, Lamar [phone] returned this video games storywriter's call and discussed pt's discharge plan back to [facility] living [phone]. Lamar stated pt does not need an alternative plan because admissions confirmed with him today that pt is welcome back. This SW stated this video games storywriter will need confirmation from Doretha as well prior to discharge. SW will follow-up with Lamar. Pt's psychiatrist, Dr. Sage is up to date as well. Pt has a discharge order for 06/07/23.
[2023-06-06] MEDS: LORAZEPAM 1 MG TABLET PO PRN ×2 (12:23→20:20)
[2023-06-06 13:03] LABS: *BILIRUBIN,URIN NEGATIVE (NEGATIVE); *BLOOD, URINE NEGATIVE (NEGATIVE); *CLARITY,URINE CLEAR (CLEAR); *COLOR,URINE YELLOW (YELLOW); *KETONES,URINE NEGATIVE (NEGATIVE); *UROBILINOGEN,URINE 0.2 E.U./dl (NORMAL); LEUKOCYTE ESTERASE ,URINE NEGATIVE (NEGATIVE); NITRITE, URINE NEGATIVE (NEGATIVE); PH,URINE 5.5 (5.0-8.0); UGLUCOSE NEGATIVE (NEGATIVE)
--- NOTE | 2023-06-06 14:54 | NUR ---
GPS: Nursing Notes: Thought Disorder: Patient is awake and responding to his name, disoriented, disorganized, impaired judgment, poor insight, needs assistance with ADL's, regressing to his cocop[place] language - Farsi, redirected and reoriented during shift, unable to formulate a viable plan for self care, continue to monitor for safety, continue with treatment plan.
[2023-06-06 15:13] VITALS: BP 119/59; TEMP 98.2; O2SAT 98
[2023-06-06] MEDS ORDERED: OLANZAPINE 2.5 MG TABLET PO SCH (17:00)
[2023-06-06] MEDS ORDERED: OLANZAPINE 10 MG VIAL IM STA (17:24)
--- NOTE | 2023-06-06 17:36 | NUR ---
GPS: Nursing Notes: Chemical Restraint: Patient continue to be overly disruptive by shouting, punched staff on left eye, grabbing peers when getting closer to him, restless behavior, setting limits, but unable to be redirected, throw his dinner tray on the floor, Dr. Sage called and ordered: Zyprexa 3mg IM X1 STAT for violent outburst, R=18, IM medication given at this time, continue to monitor for safety, continue with treatment plan.
--- NOTE | 2023-06-06 17:37 | NUR ---
GPS: Nursing Notes: Violent Outburst: Patient is awake and responding to his name, overly disruptive by shouting, sundown behavior, violent outburst without provocation, striking out to staff, grabbing peers when getting closer to him, punched staff on left eye, poor anger management, threw his dinner tray on the floor, restless behavior, constantly shouting, Dr. Sage was call, continue to monitor for safety, continue with treatment plan. Addendum: 06/06/23 at 1815 by NIDHI NOBLE LVN GPS: Nursing Notes: Violent Outburst: Above charting charting happened around 17:30 hrs.
--- NOTE | 2023-06-06 18:06 | NUR ---
GPS: Nursing Notes: Reassessment of Chemical Restraint: Patient is awake and continue to be overly disruptive by constantly shouting, poor impulse control, impaired judgment, poor anger management, IM medication was not effective at this time, continue to monitor for safety, R=20, continue with treatment plan.
[2023-06-06 20:00] VITALS: BP 119/65; TEMP 98.7; O2SAT 98
[2023-06-06] MEDS: ATORVASTATIN 40 MG TABLET PO SCH (20:20)
[2023-06-06] MEDS: TAMSULOSIN HCL 0.4 MG CAP.SR.24H PO SCH (20:20)
--- NOTE | 2023-06-06 20:30 | NUR ---
Received patient in the hallway sitting in a lory chair for his safety. He is noted awake, A/O x 1. he is hyperverbal, and restless. Pt is unable to have a meaningful conversation with this expert medical writer. All his needs are met. He is oriented to reality. Ativan 1mg PO PRN was given for agitation. His V/S are stable. he was given PO fluids and snacks. Pt is reassured for his safety. safety and fall precautions are in place. will continue to monitor.
[2023-06-06] MEDS: TEMAZEPAM 15 MG CAPSULE PO PRN (22:06)
[2023-06-07] MEDS: PANTOPRAZOLE SODIUM 40 MG TABLET.DR PO SCH (06:45)
[2023-06-07] MEDS: LEVOTHYROXINE SODIUM 25 MCG TABLET PO SCH (06:45)
--- NOTE | 2023-06-07 06:54 | NUR ---
Patient slept for approx 6 yrs through the night. he is currently up in a lory chair, he is calm and cooperative with medication regiment diet and care.
[2023-06-07 08:07] VITALS: BP 125/57; TEMP 98.4; O2SAT 98
[2023-06-07 08:09] LABS: HEMATOCRIT 38.5 % (36.7-47.1); MEAN CORPUSCULAR HEMOGLOBIN 31.7 uug (23.8-33.4); MEAN CORPUSCULAR VOLUME 95.8 fL (73.0-96.2); PLATELET COUNT (AUTO) 198 K/uL (152-348)
[2023-06-07] MEDS: ASPIRIN 81 MG TAB.CHEW PO SCH (08:24)
[2023-06-07] MEDS: OLANZAPINE 2.5 MG TABLET PO SCH ×2 (08:24→17:37)
[2023-06-07] MEDS: CYANOCOBALAMIN 1,000 MCG TABLET PO SCH (08:24)
[2023-06-07] MEDS: POTASSIUM CHLORIDE 20 MEQ TAB.PRT.SR PO SCH (08:24)
[2023-06-07] MEDS: CALCIUM CARB/VITAMIN D 500MG-200UNITS TABLET PO SCH ×2 (08:24→17:37)
[2023-06-07] MEDS: ESCITALOPRAM OXALATE 10 MG TABLET PO SCH ×2 (08:24→12:44)
[2023-06-07] MEDS: FUROSEMIDE 40 MG TABLET PO SCH (08:25)
[2023-06-07 08:31] LABS: CARBON DIOXIDE 32 mmol/L (21-32); CHLORIDE 107 mmol/L (98-107); CREATININE 1.2 mg/dL (0.6-1.3); MAGNESIUM 2.4 mg/dL (1.8-2.4); PHOSPHOROUS 3.2 mg/dL (2.5-4.9); POTASSIUM 4.2 mmol/L (3.5-5.1); UREA NITROGEN, BLOOD 29 mg/dL (7-18)
[2023-06-07] MEDS: LORAZEPAM 1 MG TABLET PO PRN ×2 (08:31→20:05)
[2023-06-07] MEDS: MUPIROCIN 2% OINT 22 GM TUBE TP SCH ×2 (08:48→20:37)
[2023-06-07] MEDS: ENSURE ENLIVE (VAN) 240 ML LIQUID PO SCH (08:48)
--- NOTE | 2023-06-07 08:59 | NUR ---
MARJORIE Discharge Update: MARJORIE spoke with son/DPOA, Lamar [phone] regarding pt's discharge postponed to [facility] [phone] from 06/07/23 to 06/08/23 due to medication adjustment. Per report, MARJORIE stated pt became aggressive with staff and Dr. Sage has delayed discharge. Lamar appreciated the call and is agreeable with the new plan. MARJORIE informed Bell at [facility] to inform the charge nurse, Doretha of pt's discharge date update.
[2023-06-07 15:38] VITALS: BP 116/57; TEMP 98.4; O2SAT 98
--- NOTE | 2023-06-07 18:17 | NUR ---
Pt is confused, disoriented, impaired judgment. Pt is more cooperative with care and less anxious. Pt needs maximal assistance with ADLs. Pt is compliant with medications. Pt is unable to formulate a viable plan for self care. Reassurance and emotional support provided. Safety measures in place. Continue to monitor for safety, continue with treatment plan.
[2023-06-07 20:07] VITALS: BP 125/57; TEMP 98.3; O2SAT 97
[2023-06-07] MEDS: ATORVASTATIN 40 MG TABLET PO SCH (20:37)
[2023-06-07] MEDS: TEMAZEPAM 15 MG CAPSULE PO PRN (20:37)
[2023-06-07] MEDS: TAMSULOSIN HCL 0.4 MG CAP.SR.24H PO SCH (20:40)
--- NOTE | 2023-06-08 05:29 | NUR ---
Pt received on the chair, disoriented and yelling at times.Assisted to the bathroom.Safety precautions in place.will continue to monitor.
[2023-06-08 08:02] VITALS: BP 159/54; TEMP 98; O2SAT 98
[2023-06-08] MEDS: ESCITALOPRAM OXALATE 10 MG TABLET PO SCH (10:52)
[2023-06-08] MEDS: CALCIUM CARB/VITAMIN D 500MG-200UNITS TABLET PO SCH ×2 (10:53→17:42)
[2023-06-08] MEDS: ASPIRIN 81 MG TAB.CHEW PO SCH (10:54)
[2023-06-08] MEDS: LEVOTHYROXINE SODIUM 25 MCG TABLET PO SCH (10:55)
[2023-06-08] MEDS: POTASSIUM CHLORIDE 20 MEQ TAB.PRT.SR PO SCH (10:55)
[2023-06-08] MEDS: PANTOPRAZOLE SODIUM 40 MG TABLET.DR PO SCH (10:55)
[2023-06-08] MEDS: CYANOCOBALAMIN 1,000 MCG TABLET PO SCH (10:55)
[2023-06-08] MEDS: MUPIROCIN 2% OINT 22 GM TUBE TP SCH ×2 (10:56→20:30)
[2023-06-08] MEDS: FUROSEMIDE 40 MG TABLET PO SCH (10:58)
[2023-06-08] MEDS: OLANZAPINE 2.5 MG TABLET PO SCH ×2 (10:58→17:42)
[2023-06-08] MEDS: ENSURE ENLIVE (VAN) 240 ML LIQUID PO SCH (11:04)
[2023-06-08 15:35] VITALS: BP 105/55; TEMP 98; O2SAT 98
--- NOTE | 2023-06-08 19:31 | NUR ---
Pt is confused, speaks Farsi. Used the flasher adjuster, but per flasher adjuster, patient does not make sense in Farsi either. Pt is compliant with medications. Pt was calm in the morning, able to state his needs in Thai. Pt was owning after dinner, yelling and being non-sensical.
[2023-06-08 20:04] VITALS: BP 156/60; TEMP 98; O2SAT 96
[2023-06-08] MEDS: ATORVASTATIN 40 MG TABLET PO SCH (20:31)
[2023-06-08] MEDS: TAMSULOSIN HCL 0.4 MG CAP.SR.24H PO SCH (20:31)
[2023-06-08] MEDS: TEMAZEPAM 15 MG CAPSULE PO PRN (22:51)
--- NOTE | 2023-06-08 22:51 | NUR ---
Pt was having trouble falling asleep and continued to be restless and confused. Gave Restoril 15mg po prn. Safe environment provided. Will continue to monitor.
[2023-06-09] MEDS: LORAZEPAM 1 MG TABLET PO PRN ×4 (00:54→20:14)
[2023-06-09] MEDS: ACETAMINOPHEN 325 MG TABLET PO PRN (01:37)
[2023-06-09] MEDS: OLANZAPINE 2.5 MG TABLET PO PRN (01:37)
--- NOTE | 2023-06-09 05:04 | NUR ---
Gave Ativan po prn d/t continued restlessness and yelling. Pt continuously yells "hello?" with no self conscious as to why he is doing so. Pt cannot comprehend directions nor does he makes sense with his statements. Safe environment actively provided.
[2023-06-09] MEDS: LEVOTHYROXINE SODIUM 25 MCG TABLET PO SCH (06:06)
[2023-06-09] MEDS: PANTOPRAZOLE SODIUM 40 MG TABLET.DR PO SCH (06:07)
--- NOTE | 2023-06-09 06:45 | NUR ---
Pt has been struggling to stand and do transfers. He is x4 (four) assist with standing and transferring from gerichair to toilet, from gerichair to bed, and vice versa. Patient's legs are weaker, and showed loss of control/positioning upon attempting to stand and transfer. He is a high risk fall. Patient's bilateral lower legs, seem to be swelling more each day with some clear fluid wheezing noted.
[2023-06-09 08:19] VITALS: BP 141/58; TEMP 98.2; O2SAT 98
[2023-06-09] MEDS: POTASSIUM CHLORIDE 20 MEQ TAB.PRT.SR PO SCH (08:48)
[2023-06-09] MEDS: ESCITALOPRAM OXALATE 10 MG TABLET PO SCH ×2 (08:48→12:08)
[2023-06-09] MEDS: CYANOCOBALAMIN 1,000 MCG TABLET PO SCH (08:48)
[2023-06-09] MEDS: OLANZAPINE 2.5 MG TABLET PO SCH ×3 (08:48→21:31)
[2023-06-09] MEDS: CALCIUM CARB/VITAMIN D 500MG-200UNITS TABLET PO SCH ×2 (08:48→16:17)
[2023-06-09] MEDS: ASPIRIN 81 MG TAB.CHEW PO SCH (08:48)
[2023-06-09] MEDS: ENSURE ENLIVE (VAN) 240 ML LIQUID PO SCH (08:50)
[2023-06-09] MEDS: FUROSEMIDE 40 MG TABLET PO SCH (08:51)
[2023-06-09] MEDS: MUPIROCIN 2% OINT 22 GM TUBE TP SCH (08:52)
--- NOTE | 2023-06-09 14:35 | NUR ---
Patient had PC hearing for 14 days hold and political worker gave 5250 hold probate cause for GD. Addendum: 06/09/23 at 1437 by CELIA HUNT RN for 30 days hearing probate cause for GD.
[2023-06-09 15:36] VITALS: BP 125/62; TEMP 98; O2SAT 98
--- NOTE | 2023-06-09 20:14 | NUR ---
Gave Ativan d/t continued restlessness at beginning of shift. Safe environment established.
[2023-06-09 20:43] VITALS: BP 131/61; TEMP 98; O2SAT 98
[2023-06-09] MEDS: TAMSULOSIN HCL 0.4 MG CAP.SR.24H PO SCH (21:31)
[2023-06-09] MEDS: ATORVASTATIN 40 MG TABLET PO SCH (21:34)
--- NOTE | 2023-06-10 04:46 | NUR ---
Patient's legs somewhat stronger this shift. He's still x3 assist with transfers and ambulation d/t generalized weakness of the lower ext.
[2023-06-10] MEDS: LEVOTHYROXINE SODIUM 25 MCG TABLET PO SCH (06:31)
[2023-06-10] MEDS: PANTOPRAZOLE SODIUM 40 MG TABLET.DR PO SCH (06:31)
[2023-06-10 08:02] VITALS: BP 151/65; TEMP 98; O2SAT 97
[2023-06-10] MEDS: ENSURE ENLIVE (VAN) 240 ML LIQUID PO SCH (09:00)
[2023-06-10] MEDS: CYANOCOBALAMIN 1,000 MCG TABLET PO SCH (10:05)
[2023-06-10] MEDS: FUROSEMIDE 40 MG TABLET PO SCH (10:05)
[2023-06-10] MEDS: CALCIUM CARB/VITAMIN D 500MG-200UNITS TABLET PO SCH ×2 (10:05→18:01)
[2023-06-10] MEDS: ESCITALOPRAM OXALATE 10 MG TABLET PO SCH (10:05)
[2023-06-10] MEDS: ASPIRIN 81 MG TAB.CHEW PO SCH (10:05)
[2023-06-10] MEDS: OLANZAPINE 2.5 MG TABLET PO SCH ×3 (10:12→20:38)
[2023-06-10] MEDS: POTASSIUM CHLORIDE 20 MEQ TAB.PRT.SR PO SCH (10:12)
[2023-06-10 16:19] VITALS: BP 121/56; TEMP 98; O2SAT 97
[2023-06-10 20:00] VITALS: BP 144/60; TEMP 98.1; O2SAT 96
[2023-06-10] MEDS: TAMSULOSIN HCL 0.4 MG CAP.SR.24H PO SCH (20:38)
[2023-06-10] MEDS: ATORVASTATIN 40 MG TABLET PO SCH (20:38)
[2023-06-10] MEDS: LORAZEPAM 1 MG TABLET PO PRN (21:37)
--- NOTE | 2023-06-10 21:50 | NUR ---
Received patient in the hallway sitting in a lory chair close to the nursing station for his safety. he is noted A/O x 1. he is Hyperverbal, (Pt is Anmian speaker) anxious a times. He was able to comply with all his night time medication plus Ativan 1mg was given at 2140. Pt requires reality orientation. He was also noted edema Pitting 2+ on both lower extremities and feet. he is on laxis ans K-dur. His V/s are stable, pt in no distress. He was given PO fluids and snacks. he is reassured for his safety. safety and fall precautions are in place. will continue to monitor.
[2023-06-10] MEDS: TEMAZEPAM 15 MG CAPSULE PO PRN (22:38)
[2023-06-11] MEDS: PANTOPRAZOLE SODIUM 40 MG TABLET.DR PO SCH (06:11)
[2023-06-11] MEDS: LEVOTHYROXINE SODIUM 25 MCG TABLET PO SCH (06:11)
[2023-06-11] MEDS: LORAZEPAM 1 MG TABLET PO PRN ×3 (08:23→14:34)
[2023-06-11] MEDS: ESCITALOPRAM OXALATE 10 MG TABLET PO SCH ×2 (08:24→09:01)
[2023-06-11] MEDS: OLANZAPINE 2.5 MG TABLET PO SCH ×3 (08:24→20:14)
[2023-06-11] MEDS: ENSURE ENLIVE (VAN) 240 ML LIQUID PO SCH (08:26)
[2023-06-11 08:43] VITALS: BP 153/60; TEMP 98.2; O2SAT 97
[2023-06-11] MEDS: CYANOCOBALAMIN 1,000 MCG TABLET PO SCH (09:00)
[2023-06-11] MEDS: ERGOCALCIFEROL 50,000 UNIT CAPSULE PO SCH (09:00)
[2023-06-11] MEDS: CALCIUM CARB/VITAMIN D 500MG-200UNITS TABLET PO SCH ×2 (09:01→17:33)
[2023-06-11] MEDS: POTASSIUM CHLORIDE 20 MEQ TAB.PRT.SR PO SCH (09:01)
[2023-06-11] MEDS: ASPIRIN 81 MG TAB.CHEW PO SCH (09:01)
[2023-06-11] MEDS: FUROSEMIDE 40 MG TABLET PO SCH (09:01)
--- NOTE | 2023-06-11 15:47 | NUR ---
Received Patient is awake and responding to his name, disoriented, confused, disorganized, impaired judgment, poor insight, regressing to his is farsi speaking unable to formulate a viable plan for self care, redirected and reoriented during shift, episodes of irritability, but redirected, sundown behavior at times, continue to monitor for safety, continue with treatment plan.
[2023-06-11 16:34] VITALS: BP 145/63; TEMP 98.1; O2SAT 97
[2023-06-11] MEDS: ATORVASTATIN 40 MG TABLET PO SCH (20:14)
[2023-06-11] MEDS: TAMSULOSIN HCL 0.4 MG CAP.SR.24H PO SCH (20:15)
[2023-06-11 20:24] VITALS: BP 138/51; TEMP 98; O2SAT 98
[2023-06-11] MEDS: OLANZAPINE 2.5 MG TABLET PO PRN (21:29)
--- NOTE | 2023-06-11 21:30 | NUR ---
Received patient in the hallway sitting in a lory chair close to the nursing station for his safety. he is noted A/O x 1. pt speak [place] but he is able to understand some Tuvaluan. he is Hyperverbal, and easily irritable. However, some improvement is noted since yesterday. He is able to comply with all his night time medication. Zyprexa 2.5 mg PO PRN for anxiety and restlessness. Pt requires reality orientation. He was also noted edema Pitting 2+ on both lower extremities and feet. he is on laxis ans K-dur. His V/s are stable, pt in no distress. He was given PO fluids and snacks. he is reassured for his safety. safety and fall precautions are in place. will continue to monitor.
[2023-06-11] MEDS: TEMAZEPAM 15 MG CAPSULE PO PRN (23:00)
[2023-06-12] MEDS: PANTOPRAZOLE SODIUM 40 MG TABLET.DR PO SCH (06:40)
[2023-06-12] MEDS: LEVOTHYROXINE SODIUM 25 MCG TABLET PO SCH (06:40)
[2023-06-12 07:50] VITALS: BP 146/65; TEMP 98.3; O2SAT 97
[2023-06-12] MEDS: ASPIRIN 81 MG TAB.CHEW PO SCH (08:06)
[2023-06-12] MEDS: POTASSIUM CHLORIDE 20 MEQ TAB.PRT.SR PO SCH (08:08)
[2023-06-12] MEDS: CALCIUM CARB/VITAMIN D 500MG-200UNITS TABLET PO SCH (08:08)
[2023-06-12] MEDS: CYANOCOBALAMIN 1,000 MCG TABLET PO SCH (08:08)
[2023-06-12] MEDS: FUROSEMIDE 40 MG TABLET PO SCH (08:09)
[2023-06-12] MEDS: ESCITALOPRAM OXALATE 10 MG TABLET PO SCH (08:30)
[2023-06-12] MEDS: OLANZAPINE 2.5 MG TABLET PO SCH (08:59)
[2023-06-12] MEDS: ENSURE ENLIVE (VAN) 240 ML LIQUID PO SCH (09:13)
[2023-06-12] MEDS ORDERED: OLANZAPINE 2.5 MG TABLET PO PRN (09:56)
--- NOTE | 2023-06-12 12:08 | NUR ---
MARJORIE Discharge Update: Per psychiatrist, Dr. Sage, pt is no longer safe to return to [facility] where pt came from. MARJORIE informed Sharon antonio at [facility] who is aware of pt's discharge update. Pt's son, Lamar [phone] is aware and agreeable that pt require a longterm facility due to the higher level of care need. Dr. Sage referred to [facility] and MARJORIE faxed clinicals to the facility. MARJORIE will follow-up on acceptance for discharge today.
--- NOTE | 2023-06-12 12:14 | NUR ---
MARJORIE Discharge Note: Pt will be discharged to [facility] located at [address] [place] [id number] ([phone]) via Ambulance transportation at 11AM. MARJORIE spoke with Maximino beard at the facility who states they are ready to accept the patient today. Pt s son, Lamar [phone] is aware and agreeable with the discharge plan. Pt is alert and oriented x1, is unable to plan for self-care at this time. However, pt is willing to accept care at SNF. Pt denies any suicidal or homicidal ideation. Pt will follow-up at the facility with Psychiatrist, Dr. Sage and Battery Builder, Dr. Greene. Pt presents with calm mood and congruent affect. PHARMACY: [facility] ([phone]) [address] [place] [address].
--- NOTE | 2023-06-12 13:31 | NUR ---
Patient was discharged to [facility] located at [address] [place] [address] ([phone]) via Ambulance transportation and accompanied by 2 paramedics and with all his belongings including cell phone and upper dentures. Report was given to Ray CLARK at the facility.He was calm cooperative and pleasant upon approached and in no distress. V/S: B/P 136/56. HR 88, respiration 18 and O2Sat 96%. Son Don was notified via phone call at [phone]. Picture was taken of scab on lower left anterior leg.
[2023-06-12] MEDS ORDERED: OLANZAPINE 2.5 MG TABLET PO SCH (17:00)
[2023-06-12] MEDS ORDERED: OLANZAPINE 5 MG TABLET PO SCH (21:00)
== END 2023-06-12 13:30 | DRG 885 ==
LOC: ER 23:58 → GPS 05-22 09:51
PROVIDERS: ADMIT Psychiatry & Neurology Psychosomatic Medicine; ATTEND Internal Medicine
DX: F29 Unspecified psychosis not due to a substance or known physiological condition (principal); N17.0 Acute kidney failure with tubular necrosis; I50.33 Acute on chronic diastolic (congestive) heart failure; F03.911 Unspecified dementia, unspecified severity, with agitation; F03.94 Unspecified dementia, unspecified severity, with anxiety; I45.2 Bifascicular block; D68.59 Other primary thrombophilia; F03.92 Unspecified dementia, unspecified severity, with psychotic disturbance; F41.1 Generalized anxiety disorder; I48.91 Unspecified atrial fibrillation; I87.303 Chronic venous hypertension (idiopathic) without complications of bilateral lower extremity; E78.5 Hyperlipidemia, unspecified; N40.0 Benign prostatic hyperplasia without lower urinary tract symptoms; Z79.82 Long term (current) use of aspirin; E03.9 Hypothyroidism, unspecified; Z79.890 Hormone replacement therapy; Z79.899 Other long term (current) drug therapy
CPT/HCPCS: 36415; 70450; 71045; 83735; 84100; 84443; 85025; 93005; G0480; J1630; J2060; J2358; Q0162